=== PATIENT | female | born 1995 | race Caucasian/White ===

== ENCOUNTER 2017-12-23 07:32 | Emergency (ER) | payer MEDICAID ==
[2017-12-23] MEDS ORDERED: Meclizine 25 MG Tab PO ONE (08:44)
[2017-12-23] MEDS ORDERED: traMADol 50 MG Tab PO ONE (08:44)
--- NOTE | 2017-12-23 08:47 | EDM.PDOC ---
ED HPI GENERAL MEDICAL PROBLEM - General Chief Complaint: General Stated Complaint: UA Time Seen by Provider: 12/23/17 07:35 Source of Information: Reports: Patient History Limitations: Reports: No Limitations - History of Present Illness INITIAL COMMENTS - FREE TEXT/NARRATIVE: 22 y.o.w.m smoker with H/A, dizziness and suprapubic discomfort. Pt has a h/o frequent UTIs. LNMP 1 week ago. No N/V/D or any other acute medical issues. Denies ETOH or drug use BP 116/66 Pulse 117 RR 17 Pulse ox 98% on RA Temp 37.1 Onset Date: 12/23/17 Onset Time: 07:00 Duration: Hour(s): Location: Reports: Head, Abdomen Quality: Reports: Ache Severity: Mild Improves with: Reports: Rest Worsens with: Reports: Movement Context: Reports: Other Associated Symptoms: Reports: Other (Headache) head and abdomen Pain Score (Numeric/FACES): 6 - Related Data Allergies Allergy/AdvReac Type Severity Reaction Status Date / Time No Known Allergies Allergy Verified 12/23/17 07:43 Home Meds: Home Meds Meclizine [Antivert] 25 mg PO TID PRN #7 tab 12/23/17 [Rx] traMADol HCl [Ultram] 50 mg PO BID PRN #10 tablet 12/23/17 [Rx] traMADol HCl [Ultram] 50 mg PO BID PRN #8 tablet 12/23/17 [Rx] Past Medical History Genitourinary History: Reports: UTI, Recurrent [employer] History: Reports: Psychiatric History: Reports: Anxiety, Depression Social & Family History - Family History Family Medical History: Noncontributory - Tobacco Use Smoking Status *Q: Current Every Day Smoker Years of Tobacco use: 9 Packs/Tins Daily: 0.5 - Caffeine Use Caffeine Use: Reports: Coffee, Soda - Recreational Drug Use Recreational Drug Use: No ED ROS GENERAL - Review of Systems Review Of Systems: See Below Constitutional: Reports: No Symptoms HEENT: Reports: Vertigo Respiratory: Reports: No Symptoms Cardiovascular: Reports: No Symptoms Endocrine: Reports: No Symptoms GI/Abdominal: Reports: No Symptoms : Reports: Dysuria Musculoskeletal: Reports: No Symptoms Skin: Reports: No Symptoms Neurological: Reports: No Symptoms Psychiatric: Reports: No Symptoms Hematologic/Lymphatic: Reports: No Symptoms Immunologic: Reports: No Symptoms ED EXAM, GENERAL - Physical Exam Exam: See Below Exam Limited By: No Limitations General Appearance: Alert, WD/WN, Mild Distress Eye Exam: Bilateral Eye: Normal Inspection Ears: Normal External Exam Ear Exam: Bilateral Ear: Auricle Normal Nose: Normal Inspection, Normal Mucosa Throat/Mouth: Normal Inspection, Normal Lips, Normal Teeth, Normal Voice, No Airway Compromise Head: Atraumatic, Normocephalic Neck: Normal Inspection, Supple, Non-Tender, Full Range of Motion Respiratory/Chest: No Respiratory Distress, Lungs Clear, Normal Breath Sounds, Chest Non-Tender Cardiovascular: Normal Peripheral Pulses, Regular Rate, Rhythm, No Edema GI/Abdominal: Normal Bowel Sounds, Soft, Tender (minor suprapubic tenderness) (Female) Exam: Deferred Rectal (Female) Exam: Deferred Back Exam: Normal Inspection, Full Range of Motion Extremities: Normal Inspection, Normal Range of Motion, Non-Tender Neurological: Alert, Oriented, CN II-XII Intact, Normal Cognition, Abnormal Gait (dizzy) Psychiatric: Normal Affect, Normal Mood Skin Exam: Warm, Dry, Intact, Normal Color, No Rash Lymphatic: No Adenopathy Course - Vital Signs Text/Narrative:: 22 y.o.w.m smoker with H/A, dizziness and suprapubic discomfort. Pt has a h/o frequent UTIs. LNMP 1 week ago. No N/V/D or any other acute medical issues. Denies ETOH or drug use BP 116/66 Pulse 117 RR 17 Pulse ox 98% on RA Temp 37.1 PE: WNWD W F with H/A, Diziness and suprapupic abd. pain Impression: Tension H/A, Vertigo.Micr. Hematuria Tx: Refused toradol. Ultram, Antivert were given Reexam: Improved, Pt was ambulating well on D/C Plan: D/C with instructions Last Recorded V/S: Last Vital Signs Temp 37.3 C 12/23/17 09:17 Pulse 91 12/23/17 09:17 Resp 16 12/23/17 09:17 BP 102/56 L 12/23/17 09:17 Pulse Ox 98 12/23/17 09:17 - Orders/Labs/Meds Orders: Active Orders 24 hr Category Date Time Status HCG QUALITATIVE,URINE [URCHEM] Stat Lab 12/23/17 08:12 Ordered URINALYSIS W/MICROSCOPIC [UA W/MICROSCOPIC] [URIN] Stat Lab 12/23/17 08:12 Ordered Labs: Laboratory Tests 12/23/17 12/23/17 Range/Units 08:12 08:12 Urine Color Yellow (YELLOW) Urine Appearance Slightly cloudy (CLEAR) Urine pH 6.0 (5.0-6.5) Ur Specific [place] 1.020 (1.010-1.025) Urine Protein Negative (NEGATIVE) mg/dL Urine Glucose (UA) Normal (NEGATIVE) mg/dL Urine Ketones Negative (NEGATIVE) mg/dL Urine Occult Blood Large H (NEGATIVE) Urine Nitrite Negative (NEGATIVE) Urine Bilirubin Small H (NEGATIVE) Urine Urobilinogen 1 H (NEGATIVE) mg/dL Ur Leukocyte Esterase Negative (NEGATIVE) Urine RBC 5-10 (0) Urine WBC 0-5 (0) Ur Squamous Epith Cells Few H (NS,R,O) Urine Bacteria Moderate H (NS) Urine HCG, Qual Negative (NEGATIVE) Meds: Medications Discontinued Medications Generic Name Dose Route Start Last Admin Trade Name Nadeemq PRN Reason Stop Dose Admin Meclizine HCl 50 mg 12/23/17 08:44 12/23/17 08:50 Antivert PO 12/23/17 08:45 50 mg ONETIME ONE Administration Tramadol HCl 100 mg 12/23/17 08:44 12/23/17 08:49 Ultram PO 12/23/17 08:45 100 mg ONETIME ONE Administration Departure - Departure Time of Disposition: 09:14 Disposition: Home, Self-Care 01 Condition: Good Clinical Impression: Tension headache, Vertigo - Discharge Information Prescriptions: Meclizine [Antivert] 25 mg PO TID PRN #7 tab PRN Reason: for dizziness traMADol HCl [Ultram] 50 mg PO BID PRN #10 tablet PRN Reason: severe headache traMADol HCl [Ultram] 50 mg PO BID PRN #8 tablet PRN Reason: severe pain only Instructions: Dizziness, [id number], Fever, Adult, [id number] Referrals: PCP,None [Primary Care Provider] - Forms: ED Department Discharge, ED Return to Work/School Form Additional Instructions: Please take Antivert for dizziness, Ultram for severe pain. Please F/U with your PMD to repeat the Urine analysis in 3 days. Please come back if your symptoms get worse acutely - My Orders Last 24 Hours: My Active Orders 12/23/17 08:12 HCG QUALITATIVE,URINE [URCHEM] Stat URINALYSIS W/MICROSCOPIC [UA W/MICROSCOPIC] [URIN] Stat - Assessment/Plan Last 24 Hours: My Active Orders 12/23/17 08:12 HCG QUALITATIVE,URINE [URCHEM] Stat URINALYSIS W/MICROSCOPIC [UA W/MICROSCOPIC] [URIN] Stat
== END 2017-12-23 09:40 | disposition home or self-care (01) ==
LOC: FB.ED 07:32
DX: G44.209 Tension-type headache, unspecified, not intractable (principal); R42 Dizziness and giddiness; R31.29 Other microscopic hematuria; F17.210 Nicotine dependence, cigarettes, uncomplicated; F41.9 Anxiety disorder, unspecified; F32.9 Major depressive disorder, single episode, unspecified
CPT/HCPCS: 81001; 81025; 99283; A9270